=== PATIENT | female | born 1985 | race African-American/Black ===

== ENCOUNTER 2023-07-16 08:19 | Outpatient (CLI) | payer SELFPAY | END 2023-07-16 08:20 | disposition home or self-care (01) | LOC: CSHWCC 08:19 | PROVIDERS: ATTEND Physician Assistant | DX: S71.111S Laceration without foreign body, right thigh, sequela (principal) | CPT/HCPCS: 97597; 99213; G0463 ==

== ENCOUNTER 2023-07-20 09:18 | Outpatient (CLI) | payer OTHER | END 2023-07-20 09:19 | disposition home or self-care (01) | LOC: CSHWCC 09:18 | PROVIDERS: ATTEND Physician Assistant | DX: S71.111S Laceration without foreign body, right thigh, sequela (principal) | CPT/HCPCS: 97605 ==

== ENCOUNTER 2023-07-24 10:35 | Outpatient (CLI) | payer OTHER | END 2023-07-24 10:36 | disposition home or self-care (01) | LOC: CSHWCC 10:35 | PROVIDERS: ATTEND Physician Assistant | DX: S71.111S Laceration without foreign body, right thigh, sequela (principal) | CPT/HCPCS: 97605 ==

== ENCOUNTER 2023-07-27 14:34 | Outpatient (CLI) | payer SELFPAY | END 2023-07-27 14:35 | disposition home or self-care (01) | LOC: CSHWCC 14:34 | PROVIDERS: ATTEND Physician Assistant | DX: S71.111S Laceration without foreign body, right thigh, sequela (principal) | CPT/HCPCS: 97605 ==

== ENCOUNTER 2023-08-11 09:38 | Outpatient (CLI) | payer SELFPAY | END 2023-08-11 09:39 | disposition home or self-care (01) | LOC: CSHWCC 09:38 | PROVIDERS: ATTEND Physician Assistant | DX: S71.111S Laceration without foreign body, right thigh, sequela (principal) | CPT/HCPCS: 99212; G0463 ==